=== PATIENT | female | born 1985 | race Caucasian/White ===

== ENCOUNTER 2024-02-19 10:34 | Emergency (ER) | payer OTHER, SELFPAY ==
[2024-02-19 10:43] VITALS: BP 127/86
--- NOTE | 2024-02-19 11:46 | ED.GENMED ---
History of Present Illness
General
Chief Complaint: Cold/Flu/URI Symptoms
Source: patient
Exam Limitations: none
Time Seen by Provider: 02/19/24 11:05
Nursing documentation reviewed up to this point in time: agreed with
History of Present Illness
History of Present Illness:
38-year-old female history of asthmatic bronchitis never formally diagnosed with asthma uses marijuana otherwise non-smoker, no alcohol she has a year and 1/2-year-old who she is breast-feeding, upper respiratory symptoms for the past few days no
fever positive cough positive wheezing rattling in her chest, been using her friend's inhaler with some relief, no nausea or vomiting no hemoptysis
Past History
Past History
ED Past Medical History: Other (Asthmatic bronchitis)
ED Past Surgical History: None
Social History
Tobacco: Non-smoker
Alcohol: None
Drug: Marijuana
Personal:
Living: with family
Employment: Employed
Review of Systems
Review of Systems
All Other Systems: Not applicable
Constitutional: Denies fever or fatigue
Respiratory: Reports cough and trouble breathing
Cardiac: Reports no symptoms
ABD/GI: Reports no symptoms
: Reports no symptoms
Musculoskeletal: Reports no symptoms
Skin: Reports no symptoms
Neurological: Reports no symptoms
Phy Exam
Physical Exam
Physical Exam:
Physical Exam
General: 38 female audibly wheezing
Neck: No jaw
Heart: s1/s2 regular rate and rhythm, no murmur. equal radial pulses.
Lungs: Fair air movement with wheeze
Abdomen: Nontender
Neuro: alert and oriented. no focal neurological deficits
Skin: no rash
Psychiatric: well kept. interactive and cooperative
Extremities: no edema.
Course
Orders/Labs/Results
Orders:
Orders
02/19/24 11:31
Ipratropium/Albuterol Sulfate [Duoneb] 3 ml INH R NOW STA
Prednisone [Deltasone] 50 mg PO NOW STA
02/19/24 11:55
COVID-19 Antigen Urgent
Source: Nasal Swab
Influenza A+B Rapid Molecular Urgent
JAVIER Source: Nasal Swab
Specimen Description:
02/19/24 12:22
Albuterol Nebs [Ventolin Nebules] 2.5 mg INH R NOW STA
Vital Signs
Initial and Last Documented VS:
Initial Vital Signs
Temp Pulse Resp BP Pulse Ox
98.5 F 94 20 127/86 96
02/19/24 10:43 02/19/24 10:43 02/19/24 10:43 02/19/24 10:43 02/19/24 10:43
Last Documented Vital Signs
Temp Pulse Resp BP Pulse Ox
98.5 F 94 20 127/86 96
02/19/24 10:43 02/19/24 10:43 02/19/24 10:43 02/19/24 10:43 02/19/24 10:43
MDM/Problems Addressed
Differential Diagnosis Includes:
URI pneumonia bronchitis very low clinical suspicion for PE by history of his
MDM/Problems Addressed:
Cough shortness of breath
Chronic conditions affecting care: Asthma
Acute Exacerbation and/or Progression of Chronic Illness: Asthma
*Pulse Oximetry
Patient hypoxic: no
*Critical Care Note
Total Time (30-74mins, 75-104mins- exclusive of procedures): Not Applicable
Update Note
Update Note:
Will check chest x-ray nebs steroids viral swab consideration for antibiotics
Patient prefers not to have an x-ray will cancel and treat empirically with antibiotic
Update after neb feeling better still with some wheezing will give another neb
ED Attending Note
-
Portions of this chart may have been created with voice recognition software.� Occasional wrong word or��sound alike� substitutions may have occurred due to the inherent limitations of voice recognition software.
Discharge Plan
Departure
Condition: Good
Discharge Problem:
Acute bronchitis
Instructions: Acute Bronchitis, Adult (DC)
Prescriptions:
New
doxycycline hyclate 100 mg capsule
100 mg PO BID Qty: 14 0RF
methylprednisolone [Medrol (Adam)] 4 mg tablets,dose pack
See Rx Instructions .ROUTE .COMPLEX Qty: 21 0RF
Rx Instructions:
orally per package directions
albuterol sulfate 2.5 mg /3 mL (0.083 %) solution for nebulization
2.5 mg inhalation Q4H PRN (Reason: bronchospasm) Qty: 75 2RF
albuterol sulfate [Ventolin HFA] 90 mcg/actuation HFA aerosol inhaler
2 puff inhalation Q6H PRN (Reason: shortness of breath or wheezing) Qty: 6.7 2RF
No Action
prenat.vits,ruben,eom-safs-pliqk Tablet
1 tab PO DAILY
acetaminophen 325 mg Tablet
650 mg PO Q4HPRN PRN (Reason: mild pain) Qty: 0 0RF
ibuprofen 600 mg Tablet
600 mg PO Q6HPRN PRN (Reason: moderate pain/cramps) Qty: 0 0RF
prednisone 50 mg tablet
50 mg PO DAILY Qty: 5 0RF
albuterol sulfate 90 mcg/actuation HFA aerosol inhaler
2 puff inhalation Q6H PRN (Reason: shortness of breath or wheezing) Qty: 6.7 0RF
azithromycin [Zithromax Z-Adam] 250 mg tablet
See Rx Instructions .ROUTE .COMPLEX Qty: 6 0RF
Rx Instructions:
take 2 tabs po day 1, then 1 tab po daily x 4 days
prednisone 20 mg tablet
40 mg PO DAILY 4 Days Qty: 8 0RF
Referrals:
NONE,* [Family Provider] -
Interventions
Interventions:
*Risk Screen - Suicide Last Done: 02/19/24 10:43
*General Assessment Last Done: 02/19/24 10:43
*Neglect/Abuse Screening Last Done: 02/19/24 10:43
Discharge Date and Time
Print Language: CHINESE
[2024-02-19] MEDS: DUONEB 3 ML INH (11:49)
[2024-02-19] MEDS: DELTASONE 50 MG PO (11:50)
[2024-02-19 12:26] LABS: COVID-19 Antigen Negative (Negative)
[2024-02-19] MEDS: VENTOLIN NEBULES 2.5 MG INH (12:34)
[2024-02-19 13:00] VITALS: BP 142/88
== END 2024-02-19 13:01 | disposition home or self-care (01) ==
LOC: EMR 10:34
PROVIDERS: EMERGENCY PHYSICIAN Emergency Medicine
DX: J20.9 Acute bronchitis, unspecified (principal); Z11.52 Encounter for screening for COVID-19
CPT/HCPCS: 99284; 94640 ×2; 87502; 87811